=== PATIENT | female | born 1985 | race African-American/Black ===

== ENCOUNTER 2017-12-09 00:32 | Emergency (ER) | payer OTHER ==
[2017-12-09] MEDS ORDERED: Ondansetron ODT 4 MG TAB ONE (00:59)
[2017-12-09 01:04] LABS: Pregu Control Background? CLEAR/WHITE (CLR/WHITE); Pregu Control Bar Appear? YES (CONTROL BAR); Specific Gravity 1.018 (1.002-1.036)
[2017-12-09 01:05] LABS: Pregnancy Test - Urine (BHCG) Negative (Negative)
[2017-12-09 01:11] LABS: Bilirubin Negative (Negative); Blood, Urine Trace (Negative); Clarity Slightly Cloudy (Clear); Glucose, Urine (Dipstick) Negative (Negative); Leukocyte Negative (Negative); Nitrite Negative (Negative); Protein, Urine (Dipstick) Negative (Neg-Trace); Urobilinogen 0.2 mg/dL (0.2-1.0)
[2017-12-09 01:20] LABS: RBC/HPF 0-3 HPF (0-3); WBC/HPF 0-3 HPF (0-3)
[2017-12-09 01:21] LABS: Bacteria/HPF 2+ HPF (None Seen); Hyaline Casts/LPF NONE SEEN LPF (0-3 Hyaline); Squamous Epithelial 0-3 HPF (0-3)
--- NOTE | 2017-12-09 08:15 | RAD ---
PA AND LATERAL VIEWS CHES: HISTORY: Cough. FINDINGS: The cardiomediastinum is normal. The lungs are expanded and clear. The bony thorax is normal. IMPRESSION: Normal exam. POS: [facility]
== END 2017-12-09 01:58 | disposition home or self-care (01) ==
LOC: SCSER 00:32
DX: J20.9 Acute bronchitis, unspecified (principal); K52.9 Noninfective gastroenteritis and colitis, unspecified; F31.9 Bipolar disorder, unspecified; F17.210 Nicotine dependence, cigarettes, uncomplicated; N83.209 Unspecified ovarian cyst, unspecified side
CPT/HCPCS: 71046; 81003; 81015; 81025; Q0162

== ENCOUNTER 2018-06-15 16:12 | Emergency (ER) | payer OTHER ==
[2018-06-15 16:30] LABS: Bilirubin Negative (Negative); Blood, Urine Negative (Negative); Clarity Clear (Clear); Glucose, Urine (Dipstick) Negative (Negative); Leukocyte Negative (Negative); Nitrite Negative (Negative); Pregnancy Test - Urine (BHCG) Negative (Negative); Pregu Control Background? CLEAR/WHITE (CLR/WHITE); Pregu Control Bar Appear? YES (CONTROL BAR); Protein, Urine (Dipstick) Negative (Neg-Trace); Urobilinogen 0.2 mg/dL (0.2-1.0); pH, Urine 7.5 (5.0-9.0)
== END 2018-06-15 16:53 | disposition home or self-care (01) ==
LOC: SCSER 16:12
DX: M54.5 Low back pain (principal); F31.9 Bipolar disorder, unspecified
CPT/HCPCS: 81003; 81025; 99283

== ENCOUNTER 2018-09-27 20:13 | Emergency (ER) | payer OTHER | END 2018-09-27 20:39 | disposition home or self-care (01) | LOC: SCSER 20:13 | DX: M54.5 Low back pain (principal); F31.9 Bipolar disorder, unspecified | CPT/HCPCS: 99281 ==

== ENCOUNTER 2018-10-11 20:21 | Emergency (ER) | payer OTHER ==
[2018-10-11 21:06] LABS: #Basophils 0.1 thou/uL (0.0-0.2); #Eosinphils 0.1 thou/uL (0.0-0.7); #Lymphocytes 2.6 thou/uL (1.20-3.40); #Monocytes 0.5 thou/uL (0.11-0.59); #Neutrophils 2.9 thou/uL (1.40-6.50); %Eosinophils 1.8 % (0.0-10.0); %Lymphocytes 42.6 % (21.0-51.0); %Monocytes 7.4 % (0.0-10.0); %Neutrophils 47.1 % (42.0-75.0); Hemoglobin 13.1 g/dL (12.0-16.0); Mean Corpuscular HGB CONC 31.6 g/dL (32.0-36.0); Mean Corpuscular Hemoglobin 29.7 pg (27.0-31.0); Mean Corpuscular Volume 93.7 fL (78.0-98.0); Mean Platelet Volume 7.7 fL (7.4-10.4); Platelet Count 232 thou/uL (130-400); RBC Distribution Width 11.8 % (11.5-14.5); Red Blood Cell (RBC) Count 4.43 mill/uL (4.20-5.40)
[2018-10-11 21:24] LABS: ALT (SGPT) 12 U/L (8-55); AST (SGOT) 13 U/L (5-34); Albumin 4.2 g/dL (3.5-5.0); Alkaline Phosphatase 45 U/L (40-150); Anion Gap 13 mmol/L (10-20); BUN (Urea Nitrogen) 9 mg/dL (7.0-18.7); Bilirubin, Total 0.4 mg/dL (0.2-1.2); Calc. Creatinine Clearance 0 mL/min (70-130); Calcium 9.3 mg/dL (7.8-10.44); Carbon Dioxide 24 mmol/L (22-29); Chloride 106 mmol/L (98-107); Estimated GFR-MDRD Greater than 90; Globulin 3.2 g/dL (2.4-3.5); Glucose 87 mg/dL (70-105); Potassium 3.7 mmol/L (3.5-5.1); Protein, Total 7.4 g/dL (6.0-8.3); Sodium 139 mmol/L (136-145)
--- NOTE | 2018-10-11 23:18 | ULT ---
TRANSABDOMINAL AND ENDOVAGINAL PELVIC ULTRASOUND: History: patient. Vaginal bleeding. Comparison: None. Technique: Transabdominal and endovaginal pelvic ultrasound was performed. Ovaries are interrogated w ith grayscale, color flow, doppler imaging and spectral waveform analysis. FINDINGS: As per the patient, serial HCG on 10-08-18 was 255. Currently, there is no sonographic evidence of gest ational sac, yolk sac or pole. Uterus measures 8.2 x 4.8 x 6.6 cm. Incidental nabothian cyst is noted. Endometrial diameter is approximately 4-5 mm. Right ovary has a normal echotexture measuring 2.9 x 1.7 x 1.7 cm. The left ovary has a normal echote xture, measuring 2.4 x 3.0 x 2.3 cm. There is a small amount of free fluid in the cul-de-sac. OVARIAN DOPPLER: Vascular flow to the left and right ovary. IMPRESSION: No sonographic evidence of intrauterine gestation. Findings may represent early intrauterine pregnanc y versus a missed spontaneous versus a sonographically occult ectopic . Follow up u ltrasound with serial beta HCGs are recommended. POS: [facility]
== END 2018-10-11 23:33 | disposition home or self-care (01) ==
LOC: ERS 20:21
DX: O03.9 Complete or unspecified spontaneous abortion without complication (principal); F31.9 Bipolar disorder, unspecified
CPT/HCPCS: 36415; 76856; 80053; 84702; 85025; 86850; 86900; 86901

== ENCOUNTER 2018-11-11 14:03 | Emergency (ER) | payer OTHER ==
[2018-11-11] MEDS ORDERED: Ondansetron PF 4 MG/2 ML Vial ONE (15:53)
[2018-11-11] MEDS ORDERED: Morphine 4 MG/ML VIAL ONE ×2 (15:53→17:12)
--- NOTE | 2018-11-11 16:25 | ULT ---
FTransvaginal transabdominal pelvic ultrasound DATE:: 11/11/2018 3:20 PM CLINICAL HISTORY: Vaginal bleeding and back pain. LMP: Not provided : No reported Postmenopausal since: Not relevant Study: Transabdominal transvaginal pelvic ultrasound utilizing grayscale, color Doppler and spectral Doppler imaging. Uterus: Orientation: anteverted Size: 8.4 x 4.1 x 5.6 cm Mass: None Cervix: There are stable prominent nabothian cysts within the posterior cervix Endometrium: Normal Endometrial Thickness: 6 mm Ovaries: Size: right measures 4.1 x 2.2 x 2.2 cm; left measures 3.2 x 1.4 x 2.1 cm Mass: None. Flow: Normal Adnexal mass: Cul-de-sac: Minimal free fluid IMPRESSION: No acute sonographic abnormality demonstrated.
[2018-11-11 16:33] LABS: #Lymphocytes 2.4 thou/uL (1.20-3.40); #Monocytes 0.4 thou/uL (0.11-0.59); #Neutrophils 2.4 thou/uL (1.40-6.50); %Basophils 0.3 % (0.0-1.0); %Eosinophils 0.8 % (0.0-10.0); %Lymphocytes 45.2 % (21.0-51.0); %Monocytes 7.2 % (0.0-10.0); %Neutrophils 46.6 % (42.0-75.0); Hemoglobin 14.1 g/dL (12.0-16.0); Mean Corpuscular Hemoglobin 30.5 pg (27.0-31.0); Mean Corpuscular Volume 92.6 fL (78.0-98.0); Mean Platelet Volume 8.1 fL (7.4-10.4); Platelet Count 214 thou/uL (130-400); RBC Distribution Width 11.8 % (11.5-14.5); Red Blood Cell (RBC) Count 4.62 mill/uL (4.20-5.40); White Blood Cell (WBC) Count 5.2 thou/uL (4.8-10.8)
[2018-11-11 16:45] LABS: Bilirubin Negative (Negative); Blood, Urine Large (Negative); Clarity CLOUDY (Clear); Glucose, Urine (Dipstick) Negative (Negative); Leukocyte Negative (Negative); Nitrite Negative (Negative); Protein, Urine (Dipstick) Negative (Neg-Trace); Specific Gravity, Urine 1.021 (1.002-1.036); Urobilinogen 0.2 mg/dL (0.2-1.0); pH, Urine 7.5 (5.0-9.0)
[2018-11-11 16:47] LABS: Bacteria/HPF 1+ HPF (None Seen)
[2018-11-11 16:55] LABS: Pathc Cast-AUWi Flag 4.76 (0-2.49); Yeast-AUWi Flag 79.8 (0-25.0)
[2018-11-11 17:02] LABS: Hyaline Casts/LPF 0-3 HYALINE CAST LPF (0-3 Hyaline); Other Casts/LPF None Seen LPF (0-3 Hyaline)
[2018-11-11 17:03] LABS: Yeast-All Forms None Seen HPF (None Seen)
[2018-11-11 17:59] LABS: ALT (SGPT) 14 U/L (8-55); AST (SGOT) 22 U/L (5-34); Albumin 4.3 g/dL (3.5-5.0); Alkaline Phosphatase 41 U/L (40-150); Anion Gap 14 mmol/L (10-20); BUN (Urea Nitrogen) 8 mg/dL (7.0-18.7); Bilirubin, Total 0.6 mg/dL (0.2-1.2); Calc. Creatinine Clearance 0 mL/min (70-130); Calcium 9.7 mg/dL (7.8-10.44); Carbon Dioxide 23 mmol/L (22-29); Chloride 106 mmol/L (98-107); Estimated GFR-MDRD Greater than 90; Globulin 3.7 g/dL (2.4-3.5); Glucose 78 mg/dL (70-105); Potassium 4.5 mmol/L (3.5-5.1); Sodium 138 mmol/L (136-145)
--- NOTE | 2018-11-11 18:34 | CT ---
ABDOMEN CT WITHOUT CONTRAST PELVIC CT WITHOUT CONTRAST 11/11/18 COMPARISON: 06/14/13 HISTORY: Vaginal bleeding and pain since September. Right lower quadrant pain. FINDINGS: ABDOMEN CT: Lung bases are clear. Stable 7 mm nodule in the right lower lobe (stable since June 2013). Heart size is normal. No significant pericardial fluid. Visualized aorta has a normal caliber. Limited evaluation of the solid organs due to lack of IV contrast. No solid organ abnormality. No gas trohepatic, retrocrural or periportal lymphadenopathy. Unremarkable gallbladder. No mesenteric mass, lymphadenopathy, free air or free fluid. Bilaterally, no hydronephrosis, nephrolithiasis or perinephric fat stranding. Ureters are normal eloy judith. No hydroureter, periureteral fat stranding or ureterolithiasis. Limited evaluation of the alimentary canal by lack of oral contrast. Gastric mucosa, duodenum are unr emarkable. Multiple normal caliber small bowel loops. Ileocecal junction is normal. Fecalization of t he distal ileum likely due to incompetent ileocecal valve. There is a retrocecal appendix which is fi lled with debris. Nevertheless, no inflammation or periappendiceal fat stranding. The overall luminal diameter of the appendix is normal. Unremarkable colon. CT PELVIS: Uterus and adnexal structures are grossly unremarkable. No pelvic mass, lymphadenopathy, free air or free fluid. No calcification within the urinary bladder. No lytic or blastic lesions within the osseous structure s. IMPRESSION: 1. No evidence of nephrolithiasis or obstructive uropathy. 2. Normal caliber appendix filled with debris, likely representing appendicolith. No evidence of periappendiceal inflammation. POS: [facility]
== END 2018-11-11 19:00 | disposition home or self-care (01) ==
LOC: ERS 14:03
DX: R10.9 Unspecified abdominal pain (principal); F31.9 Bipolar disorder, unspecified
CPT/HCPCS: 74176; 76856; 80053; 81003; 81015; 84702; 85025; 96361; 96374; 96375; 96376; J2270; J2405

== ENCOUNTER 2019-03-13 13:12 | Emergency (ER) | payer OTHER ==
--- NOTE | 2019-03-13 16:48 | ULT ---
PELVIC ULTRASOUND INCLUDING TRANSABDOMINAL AND TRANSVAGINAL AND VASCULAR DUPLEX WITH COLOR AND SPECTR AL DOPPLER IMAGING: History: Pain. Comparison: 11-11-18 FINDINGS: Uterus measures 8.9 x 4.3 x 4.8 cm. Endometrium 0.3 cm. Right ovary 3.1 x 1.5 x 1.8 cm. Left ovary 2.7 x 1.8 x 1.9 cm. Numerous nabothian cysts up to 1.2 x 1.7 cm. No significant change from prior study. No abnormal flui d collection. IMPRESSION: Unremarkable pelvic ultrasound, stable from prior study. POS: [facility]
== END 2019-03-13 16:40 | disposition home or self-care (01) ==
LOC: ERS 13:12
DX: R10.2 Pelvic and perineal pain (principal); F31.9 Bipolar disorder, unspecified
CPT/HCPCS: 76856

== ENCOUNTER 2019-04-19 11:00 | Emergency (ER) | payer OTHER ==
[2019-04-19] MEDS ORDERED: Ketorolac Tromethamine 30 MG/ML VIAL ONE (11:21)
== END 2019-04-19 11:37 | disposition home or self-care (01) ==
LOC: SCSER 11:00
DX: M25.511 Pain in right shoulder (principal); F31.9 Bipolar disorder, unspecified; F90.9 Attention-deficit hyperactivity disorder, unspecified type
CPT/HCPCS: 96372; 99283; J1885

== ENCOUNTER 2019-06-06 11:27 | Emergency (ER) | payer OTHER ==
[2019-06-06] MEDS ORDERED: Ketorolac Tromethamine 60 MG/2 ML VIAL ONE (12:00)
--- NOTE | 2019-06-06 12:34 | RAD ---
Right shoulder 3 views HISTORY: Right shoulder injury. FINDINGS: Acromioclavicular and glenohumeral alignment are maintained. No acute fracture, dislocation , or aggressive osseous erosions. IMPRESSION: No acute osseous abnormalities are demonstrated.
--- NOTE | 2019-06-06 12:36 | RAD ---
Lumbar spine 2 views HISTORY: Low back pain. Injury. FINDINGS: There are 5 lumbar type vertebrae. Pedicles are intact. Vertebral body heights and AP align ment are maintained. Very mild leftward convex curvature on the frontal view. Osteophytosis of the lower facets. IMPRESSION: No acute osseous abnormalities are demonstrated
== END 2019-06-06 13:03 | disposition home or self-care (01) ==
LOC: SCSER 11:27
DX: M54.5 Low back pain (principal); M25.511 Pain in right shoulder; F31.9 Bipolar disorder, unspecified; F90.9 Attention-deficit hyperactivity disorder, unspecified type; V49.9XXA Car occupant (driver) (passenger) injured in unspecified traffic accident, initial encounter
CPT/HCPCS: 72100; 96372; J1885

== ENCOUNTER 2019-10-04 13:21 | Emergency (ER) | payer OTHER ==
[2019-10-04 13:58] LABS: Bacteria/HPF None Seen HPF (None Seen); Bilirubin Negative (Negative); Blood, Urine 2+ (Negative); Clarity Clear (Clear); Glucose, Urine (Dipstick) Normal (Negative); Leukocyte Negative Leu/uL (Negative); Nitrite Negative (Negative); Protein, Urine (Dipstick) 10 mg/dL (Neg-Trace); Urobilinogen Normal mg/dL (Less than 2); WBC/HPF 0-3 HPF (0-3)
[2019-10-04 13:59] LABS: Pregnancy Test - Urine (BHCG) Negative (Negative); Pregu Control Background? CLEAR/WHITE (CLR/WHITE); Pregu Control Bar Appear? YES (CONTROL BAR); Specific Gravity 1.023 (1.002-1.036)
[2019-10-04] MEDS ORDERED: Ibuprofen 200 MG TAB ONE (15:28)
== END 2019-10-04 15:31 | disposition home or self-care (01) ==
LOC: ERS 13:21
DX: N94.6 Dysmenorrhea, unspecified (principal); F31.9 Bipolar disorder, unspecified; F90.9 Attention-deficit hyperactivity disorder, unspecified type
CPT/HCPCS: 81003; 81015; 81025; 99284

== ENCOUNTER 2021-07-30 10:57 | Emergency (ER) | payer OTHER ==
[2021-07-30] MEDS ORDERED: Acetaminophen 500 MG TAB ONE (12:22)
[2021-07-30 13:24] LABS: SARS-CoV-2 NAA Rapid Test DETECTED (NotDetected)
== END 2021-07-30 13:51 | disposition home or self-care (01) ==
LOC: ERS 10:57
DX: U07.1 COVID-19 (principal); M94.0 Chondrocostal junction syndrome [Tietze]
CPT/HCPCS: 0240U; 71045; 93005

== ENCOUNTER 2021-12-18 08:26 | Outpatient (CLI) | payer OTHER | END 2021-12-18 08:27 | disposition home or self-care (01) | LOC: SCSMRI 08:26 | PROVIDERS: ATTEND Family Medicine | DX: M50.11 Cervical disc disorder with radiculopathy, high cervical region (principal) | CPT/HCPCS: 72141 ==

== ENCOUNTER 2022-11-30 17:55 | Emergency (ER) | payer OTHER ==
[2022-11-30 18:53] LABS: #Eosinphils 0.1 thou/uL (0.0-0.7); #Lymphocytes 1.9 thou/uL (1.20-3.40); #Monocytes 0.5 thou/uL (0.11-0.59); #Neutrophils 5.1 thou/uL (1.40-6.50); %Basophils 0.5 % (0.0-1.0); %Lymphocytes 25.2 % (21.0-51.0); %Monocytes 5.9 % (0.0-10.0); %Neutrophils 67.4 % (42.0-75.0); Hemoglobin 14.1 g/dL (12.0-16.0); Mean Corpuscular HGB CONC 34.8 g/dL (32.0-36.0); Mean Corpuscular Hemoglobin 31.2 pg (27.0-31.0); Mean Corpuscular Volume 89.6 fl (78.0-98.0); Mean Platelet Volume 8.1 fL (7.4-10.4); Platelet Count 241 10x3/uL (130-400); RBC Distribution Width 12.1 % (11.5-14.5); Red Blood Cell (RBC) Count 4.53 mill/uL (4.20-5.40); White Blood Cell (WBC) Count 7.6 10x3/uL (4.8-10.8)
[2022-11-30 19:17] LABS: ALT (SGPT) 13 U/L (8-55); AST (SGOT) 17 U/L (5-34); Albumin 4.3 g/dL (3.5-5.0); Alkaline Phosphatase 39 U/L (40-110); Anion Gap 14 mmol/L (10-20); BUN (Urea Nitrogen) 6 mg/dL (7.0-18.7); Bilirubin, Total 0.3 mg/dL (0.2-1.2); Calc. Creatinine Clearance 0 mL/min (70-130); Calcium 9.6 mg/dL (7.8-10.44); Carbon Dioxide 19 mmol/L (22-29); Chloride 106 mmol/L (98-107); Estimated GFR 99; Globulin 3.3 g/dL (2.4-3.5); Glucose 95 mg/dL (70-105); Potassium 3.4 mmol/L (3.5-5.1); Protein, Total 7.6 g/dL (6.0-8.3); Sodium 136 mmol/L (136-145)
[2022-11-30 19:55] LABS: Bacteria/HPF None Seen HPF (None Seen); Bilirubin Negative (Negative); Blood, Urine Negative (Negative); Clarity Clear (Clear); Glucose, Urine (Dipstick) Normal (Negative); Ketone, Urine Trace mg/dL (Negative); Leukocyte 75 Leu/uL (Negative); Nitrite Negative (Negative); Protein, Urine (Dipstick) Negative (Neg-Trace); RBC/HPF 0-3 HPF (0-3); Specific Gravity, Urine 1.019 (1.002-1.036); Urobilinogen Normal mg/dL (Less than 2); WBC/HPF 0-3 HPF (0-3)
[2022-11-30] MEDS ORDERED: diphenhydrAMINE 25 MG CAP ONE (21:35)
[2022-11-30] MEDS ORDERED: Metoclopramide HCl 10 MG TAB ONE (21:36)
[2022-12-01 11:28] LABS: Chlamydia by PCR, Vaginal Swab Not Detected (NotDetected); GC by PCR, Vaginal Swab Not Detected (NotDetected); Tric.vaginalis PCR,Vaginal Sw Not Detected (NotDetected)
== END 2022-11-30 22:37 | disposition home or self-care (01) ==
LOC: ERS 17:55
DX: O98.811 Other maternal infectious and parasitic diseases complicating pregnancy, first trimester (principal); B37.31 Acute candidiasis of vulva and vagina; Z3A.08 8 weeks gestation of pregnancy
CPT/HCPCS: 36415; 76856; 80053; 81003; 81015; 84702; 85025; 86900; 86901; 87086; 87480; 87491; 87510; 87591; 87660; 87661; 93976